=== PATIENT | female | born 1975 | race Caucasian/White ===

== ENCOUNTER 2018-10-06 09:46 | Day surgery (SDC) | payer BC ==
[~2018-10-06] VITALS: Ht 170.2 cm; Wt 98.1 kg
[~2018-10-06 09:46] MED LIST: BUPIVACAINE/PF-EPI 0.5% 1:200K ONE
[2018-10-06] MEDS ORDERED: LACTATED RINGERS 1,000 ML IV SCH (10:17)
[2018-10-06 10:25] VITALS: BP 111/83
[2018-10-06 10:35] VITALS: BP 111/83
[2018-10-06] MEDS ORDERED: ALBU8.5H8 IH (10:44)
[2018-10-06] MEDS ORDERED: FLUT1DIS IH (10:44)
[2018-10-06 11:11] LABS: HCG UR SG 1.005 (1.003-1.030)
[2018-10-06] MEDS ORDERED: MIDAZOLAM 1 MG/ML, 2ML ONE (11:12)
[2018-10-06] MEDS ORDERED: FENTANYL PF 250 MCG/5ML ONE (11:12)
[2018-10-06] MEDS ORDERED: BUPIVACAINE/PF-EPI 0.5% 1:200K INFIL ONE (11:53)
[2018-10-06] MEDS ORDERED: PROMETHAZINE 25 MG/ML, 1ML IV PRN (12:00)
[2018-10-06] MEDS ORDERED: ONDANSETRON 2MG/ML, 2ML IV PRN (12:00)
[2018-10-06] MEDS ORDERED: OXYcodone 5 MG/5 ML ORAL.SOL UDC PO PRN (12:00)
[2018-10-06] MEDS ORDERED: MEPERIDINE/PF 25MG/0.5ML IVPush PRN (12:00)
[2018-10-06] MEDS ORDERED: HYDROmorphone 2 MG/ML, 1ML IVPush PRN (12:00)
[2018-10-06] MEDS ORDERED: ACETAMINOPHEN 325 MG TABLET PO PRN (12:00)
[2018-10-06] MEDS ORDERED: DIAZEPAM 5 MG/ML, 2ML IVPush PRN (12:00)
[2018-10-06] MEDS ORDERED: ONDANSETRON ODT 8 MG PO PRN (12:00)
[2018-10-06] MEDS ORDERED: ALBUTEROL SULFATE 2.5 MG/3 ML NPPB PRN (12:00)
[2018-10-06] MEDS ORDERED: PROPOFOL 10 MG/ML, 20ML ONE (12:24)
[2018-10-06] MEDS ORDERED: DEXAMETHASONE 4 MG/ML, 1ML ONE (12:24)
[2018-10-06] MEDS ORDERED: CEFAZOLIN 1,000 MG ONE (12:24)
[2018-10-06] MEDS ORDERED: ROCURONIUM 10MG/ML,5ML ONE (12:24)
[2018-10-06] MEDS ORDERED: ONDANSETRON 2MG/ML, 2ML ONE (12:24)
[2018-10-06] MEDS ORDERED: SUCCINYLCHOLINE 20 MG/ML, 10ML ONE (12:24)
[2018-10-06] MEDS ORDERED: NEOSTIGMINE 1 MG/ML, 10ML ONE (12:24)
[2018-10-06] MEDS ORDERED: GLYCOPYRROLATE 0.2MG/1ML, 5ML ONE (12:24)
[2018-10-06] MEDS ORDERED: FENTANYL PF 100 MCG/2ML ONE (12:41)
[2018-10-06] MEDS ORDERED: OXYcodone 5 MG/5 ML ORAL.SOL UDC ONE (12:41)
[2018-10-06] MEDS: FENTANYL PF 100 MCG/2ML IV PRN ×2 (12:57→13:03)
[2018-10-06] MEDS ORDERED: HYDROmorphone 1 MG/ML, 1ML ONE (12:59)
[2018-10-06] MEDS ORDERED: ALBUTEROL SULFATE 200 PUFFS/8.5 GR INH ONE (15:17)
[2018-10-06] MEDS ORDERED: morphine SULFATE 10 MG/ML, 1ML ONE (15:56)
[2018-10-06] MEDS ORDERED: morphine SULFATE 10 MG/ML, 1ML IVPush PRN (16:30)
== END 2018-10-06 18:00 | disposition home or self-care (01) ==
LOC: OUT 09:46
PROVIDERS: ATTEND Surgery
DX: K81.1 Chronic cholecystitis (principal); K82.8 Other specified diseases of gallbladder; J45.909 Unspecified asthma, uncomplicated; E66.9 Obesity, unspecified; Z68.33 Body mass index [BMI] 33.0-33.9, adult; Z98.890 Other specified postprocedural states; Z72.89 Other problems related to lifestyle
CPT/HCPCS: 47562; 81025; 88304; J0330; J0690; J1100; J1170; J2250; J2405; J2550; J2704; J2710; J3010; J3490